=== PATIENT | female | born 1990 | race Hispanic/Latino ===

== ENCOUNTER 2018-07-22 06:45 | Emergency (ER) | payer OTHER ==
[~2018-07-22] VITALS: Ht 157.5 cm; Wt 67.1 kg
--- OUTSIDE RECORDS SUMMARY | 2018-07-22 06:47 | XMS REPORT ---
Author Author [facility] Address Unknown Phone Unavailable Care Team Providers Care Porter Head Name Role Phone Unavailable Unavailable Problems This patient has no known problems. Allergies, Adverse Reactions, Alerts This patient has no known allergies or adverse reactions. Medications This patient has no known medications.
[2018-07-22] MEDS ORDERED: ACETAMINOPHEN 325 MG TAB PO ONE (07:00)
[2018-07-22 07:33] LABS: BILIRUBIN,URINE NEGATIVE (NEGATIVE); CLARITY,URINE SL CLOUDY (CLEAR); COLOR,URINE YELLOW (YELLOW); KETONES,URINE NEGATIVE (NEGATIVE); LEUKOCYTE ESTERASE ,URINE 1+ (NEGATIVE); NITRITE,URINE NEGATIVE (NEGATIVE); PROTEIN,URINE DIPSTICK NEGATIVE (NEGATIVE); URINE UROBILINOGEN 0.2 mg/dL (0.2 - 1)
[2018-07-22 07:36] LABS: AMPHETAMINES SCREEN,URINE NEGATIVE (NEGATIVE); BENZODIAZEPINES SCREEN,URINE POSITIVE (NEGATIVE); PHENCYCLIDINE SCREEN,URINE NEGATIVE (NEGATIVE)
[2018-07-22 07:55] LABS: BACTERIA,URINE FEW /HPF; EPITHELIAL CELLS,URINE FEW /LPF
[2018-07-22] MEDS ORDERED: KETOROLAC TROMETHAMINE 60 MG/2 ML VIAL IM ONE (09:00)
--- NOTE | 2018-07-22 09:01 | Diagnostic Imaging Report ---
EXAM: CT Abdomen and Pelvis WITHOUT contrast INDICATION: Left flank pain, evaluate for stone. COMPARISON: None. TECHNIQUE: Abdomen and pelvis were scanned utilizing a multidetector helical scanner from the lung base to the pubic symphysis without administration of IV contrast. Absence of intravenous contrast decreases sensitivity for detection of focal lesions and vascular pathology. Coronal and sagittal reformations were obtained. Renal stone protocol was performed. Dose modulation, iterative reconstruction, and/or weight based adjustment of the mA/kV was utilized to reduce the radiation dose to as low as reasonably achievable. IV CONTRAST: None. ORAL CONTRAST: Water RADIATION DOSE: Total DLP: 335 mGy*cm Estimated effective dose: (DLP x 0.015 x size factor) mSv COMPLICATIONS: None FINDINGS: Exam is somewhat limited by noncontrast technique as well as motion artifact in the mid abdomen. LINES and TUBES: None. LOWER THORAX: Unremarkable HEPATOBILIARY: No focal hepatic lesions. No biliary ductal dilation. GALLBLADDER: No radio-opaque stones or sludge. No wall thickening. SPLEEN: No splenomegaly. PANCREAS: No focal masses or ductal dilatation. ADRENALS: No adrenal nodules KIDNEYS/URETERS: No hydronephrosis. No cystic or solid mass lesions. No stones. GI TRACT: No abnormal distention, wall thickening, or evidence of bowel obstruction. Appendix is normal. PELVIC ORGANS/BLADDER: Unremarkable. LYMPH NODES: No lymphadenopathy. VESSELS: Unremarkable. PERITONEUM / RETROPERITONEUM: No free air or fluid. BONES: Unremarkable. SOFT TISSUES: Small right fat containing Bochdalek hernia. IMPRESSION: No evidence of renal stone. Somewhat limited study by noncontrast technique as well as motion artifact in the mid abdomen. No evidence of acute abnormality in the abdomen or pelvis. Signed by: Dr. Betty Cain MD on 07/22/2018 8:57 AM
[2018-07-22] MEDS ORDERED: ULTRAM50 MG PO (09:25)
== END 2018-07-22 09:50 | disposition home or self-care (01) ==
LOC: ER 06:45
DX: M54.5 Low back pain (principal); R30.0 Dysuria
CPT/HCPCS: 74176; 80307; 81001; 81025; 99283; J1885